=== PATIENT | male | born 1985 | race African-American/Black ===

== ENCOUNTER 2016-05-15 11:15 | Emergency (ER) | payer OTHER ==
[2016-05-15] MEDS ORDERED: IBUPROFEN 800 MG TABLET PO STA (12:19)
[2016-05-15] MEDS ORDERED: IBUPROFEN 800 MG TABLET PO ONE (12:31)
== END 2016-05-15 13:22 | disposition home or self-care (01) ==
DX: S83.92XA Sprain of unspecified site of left knee, initial encounter (principal); X50.0XXA Overexertion from strenuous movement or load, initial encounter; Y93.23 Activity, snow (alpine) (downhill) skiing, snowboarding, sledding, tobogganing and snow tubing; Y92.838 Other recreation area as the place of occurrence of the external cause
CPT/HCPCS: 73564; 99283; A9270